=== PATIENT | female | born 1980 | race Caucasian/White ===

== ENCOUNTER 2016-10-18 10:00 | Emergency (ER) | payer OTHER ==
[2016-10-18 11:38] VITALS: BP 140/67
--- NOTE | 2016-10-18 12:15 | UC ---
Respiratory Complaint HPI - HPI Summary HPI Summary: 36 YO FEMALE WITH HX OF ASTHMA PRESENTS WITH HIGH FEVER/WORSENING COUGH / MYALGIAS X 1 DAY HAS HAD A COUGH AND WHEEZING X 1 1/2 MOS DIARRHEA X 2 WEEKS HAD RIGHT FINGER ORIF ONE WEEK AGO - History of Current Complaint Chief Complaint: UCRespiratory Stated Complaint: COUGH,FEVER Time Seen by Provider: 10/18/16 12:03 Hx Obtained From: Patient Hx Last Menstrual Period: 3 mos. Onset/Duration: Sudden Onset - OF F/C, Gradual Onset - OF COUGH/WHEEZE Timing: Constant Severity Initially: Mild Severity Currently: Severe Pain Intensity: 8 Pain Scale Used: 0-10 Numeric Character: Cough: Productive Aggravating Factors: Deep Breaths Alleviating Factors: Nothing - RAN OUR OF MDI Associated Signs And Symptoms: Positive: Fever, Chills, Wheezing - Allergies/Home Medications Allergies/Adverse Reactions: Allergies Allergy/AdvReac Type Severity Reaction Status Date / Time Carbamazepine [From Tegretol] Allergy Severe See Comment Verified 10/18/16 11:39 Cefaclor [From Ceclor] Allergy Severe See Comment Verified 10/18/16 11:39 Latex Allergy Severe Airway Verified 10/18/16 11:39 Obstruction Levetiracetam [From Keppra] Allergy Severe See Comment Verified 10/18/16 11:39 Venlafaxine [From Effexor] Allergy Severe Anxiety Verified 10/18/16 11:39 Phenytoin [From Dilantin] Allergy Intermediate See Comment Verified 10/18/16 11: 39 Acetaminophen [From Vicodin] Allergy Tachycardia Verified 10/18/16 11:39 Hydrocodone [From Vicodin] Allergy Tachycardia Verified 10/18/16 11:39 Terbutaline Allergy Swelling Verified 10/18/16 11:39 Of Face,Lips,& Throat Home Medications: Home Medications Ibuprofen TAB* [Motrin TAB* 600 MG] 600 mg PO Q24H PRN 10/18/16 [History Confirmed 10/18/16] Gummi Vitamin 2 tab PO DAILY 10/18/16 [History Confirmed 10/18/16] traMADol TAB* [Ultram*] 25 mg PO BEDTIME PRN 10/18/16 [History Confirmed ] PMH/Surg Hx/FS Hx/Imm Hx Previously Healthy: Yes Endocrine History Of: Denies: Diabetes Cardiovascular History Of: Reports: Cardiac Disorders - aorta valve dysfunction Respiratory History Of: Reports: Asthma - Surgical History Surgical History: Yes Surgery Procedure, Year, and Place: TONSILECTOMY, right 5th finger with 2 screws 09/2016 - Family History Known Family History: Positive: Hypertension, Respiratory Disease Negative: Diabetes - Social History Alcohol Use: None Substance Use Type: None Smoking Status (MU): Former Smoker Type: Cigarettes Amount Used/How Often: 1 CIG PER DAY Length of Time of Smoking/Using Tobacco: APPROX 26 YRS Have You Smoked in the Last Year: Yes When Did the Patient Quit Smoking/Using Tobacco: 08/2016 - Immunization History Most Recent Influenza Vaccination: not this season Review of Systems Constitutional: Fever, Chills Skin: Negative Eyes: Negative ENT: Negative Respiratory: Cough Cardiovascular: Negative Gastrointestinal: Diarrhea Genitourinary: Negative Motor: Negative Neurovascular: Negative Musculoskeletal: Myalgia Neurological: Negative Psychological: Negative All Other Systems Reviewed And Are Negative: Yes Physical Exam Triage Information Reviewed: Yes Appearance: Well-Appearing, No Pain Distress, Well-Nourished Vital Signs: Initial Vital Signs Temp 97.6 F 10/18/16 11:23 Pulse 68 10/18/16 11:23 Resp 20 10/18/16 11:23 BP 140/67 10/18/16 11:23 Pulse Ox 100 10/18/16 11:23 Vital Signs Reviewed: Yes Eyes: Positive: Conjunctiva Clear ENT: Positive: Hearing grossly normal, TMs normal. Negative: Nasal congestion, Nasal drainage, Tonsillar swelling, Tonsillar exudate, Trismus, Muffled/hoarse voice Neck: Positive: Supple, Nontender Respiratory: Positive: No respiratory distress, No accessory muscle use, Wheezing Cardiovascular: Positive: RRR Abdomen Description: Positive: Soft. Negative: CVA Tenderness (R), CVA Tenderness (L) Musculoskeletal: Positive: ROM Intact, No Edema Neurological: Positive: Alert, Muscle Tone Normal Psychological Exam: Normal Skin Exam: Normal UC Diagnostic Evaluation - Laboratory O2 Sat by Pulse Oximetry: 100 - NORMAL/NOT HYPOXIC Re-Evaluation - Re-Evaluation First Eval Re-Evaluation Time: 12:45 Change: Improved - STILL WHEEZING BUT NUCH IMPROVED Respiratory Course/Dx - Differential Dx/Diagnosis Provider Diagnoses: ACUTE BRONCHITIS WITH BRONCHOSPASM Discharge - Discharge Plan Condition: Stable Disposition: HOME Prescriptions: Amoxicillin/Clavulanate TAB* [Augmentin TAB 875*] 875 mg PO BID #14 tab Prednisone [Deltasone] 40 mg PO DAILY #10 tab Patient Education Materials: Acute Bronchitis (ED) Referrals: ASHLEE Green [Primary Care Provider] - 4 Days (IF NOT BETTER) Additional Instructions: USE INHALER DIRECTED RECHECK FOR NEW OR WORSENING SYMPTOMS
[2016-10-18] MEDS ORDERED: Albuterol 2.5 MG/3 ML NEB.SOL* (0.083%) INH ONE (12:16)
[2016-10-18] MEDS ORDERED: Ipratropium 0.5MG/2.5ML NEB* 0.5 MG/2.5 ML NEB.SOLN INH ONE (12:16)
--- NOTE | 2016-10-18 12:39 | RAD ---
Indication: Cough, wheezing. 2 views of the chest including dual energy PA views demonstrate no mediastinal shift. Heart is of normal size and configuration. Lung man demonstrate no pleural fluid, pneumonia or pneumothorax. IMPRESSION: No active cardiopulmonary disease is noted.
[2016-10-18] MEDS ORDERED: Albuterol HFA INHALER* 8 gm MDI INH ONE (12:51)
== END 2016-10-18 13:11 | disposition home or self-care (01) ==
LOC: UCCORT 10:00
DX: J20.9 Acute bronchitis, unspecified (principal); Z87.891 Personal history of nicotine dependence; Z88.1 Allergy status to other antibiotic agents; Z88.5 Allergy status to narcotic agent; Z88.8 Allergy status to other drugs, medicaments and biological substances
CPT/HCPCS: 71020; 87502; 99212; A9270-GY; G0463; J7644

== ENCOUNTER 2017-10-05 09:05 | Emergency (ER) | payer OTHER ==
[2017-10-05 10:00] VITALS: BP 131/73
--- NOTE | 2017-10-05 10:35 | UC ---
FLU HPI - HPI Summary HPI Summary: Pt c/o generalized malaise, nausea, X 1 month. C/O of productive cough, nasal congestion, low back pain, flank pain and difficulty urinating that began this morning. Pt reports positive history of kidney stones and urinary retention. Pt sees Dr Boss at [facility]. Pt has also concerned that she may be . Pt was able to void today. - History of Current Complaint Chief Complaint: UCGeneralIllness Stated Complaint: SORE THROAT SKIN COMPLAINT EARS Time Seen by Provider: 10/05/17 09:54 Hx Obtained From: Patient Hx Last Menstrual Period: 2016 ?: No Onset/Duration: Gradual Onset, Lasting Weeks - 4 Severity Currently: Mild Severity Initially: Mild Associated Signs & Symptoms: Positive: Cough, Sore Throat Related Hx: Possible Flu/Infectious Exposure - Risk Factors Influenza Risk Factors: Negative - Allergy/Home Medications Allergies/Adverse Reactions: Allergies Allergy/AdvReac Type Severity Reaction Status Date / Time Carbamazepine [From Tegretol] Allergy Severe See Comment Verified 10/05/17 10:00 Cefaclor [From Ceclor] Allergy Severe See Comment Verified 10/05/17 10:00 Latex Allergy Severe Airway Verified 10/05/17 10:00 Obstruction Levetiracetam [From Keppra] Allergy Severe See Comment Verified 10/05/17 10:00 Venlafaxine [From Effexor] Allergy Severe Anxiety Verified 10/05/17 10:00 Phenytoin [From Dilantin] Allergy Intermediate See Comment Verified 10/05/17 10: 00 Acetaminophen [From Vicodin] Allergy Tachycardia Verified 10/05/17 10:00 Hydrocodone [From Vicodin] Allergy Tachycardia Verified 10/05/17 10:00 Terbutaline Allergy Swelling Verified 10/05/17 10:00 Of Face,Lips,& Throat PMH/Surg Hx/FS Hx/Imm Hx Previously Healthy: Yes Neurological History: Seizures - Surgical History Surgical History: Yes Surgery Procedure, Year, and Place: TONSILECTOMY, right 5th finger with 2 screws 09/2016 - Family History Known Family History: Positive: Hypertension, Respiratory Disease Negative: Diabetes - Social History Occupation: Employed Full-time Lives: With Family Alcohol Use: None Substance Use Type: None Smoking Status (MU): Former Smoker Type: Cigarettes Amount Used/How Often: 1 CIG PER DAY Length of Time of Smoking/Using Tobacco: APPROX 26 YRS Have You Smoked in the Last Year: Yes When Did the Patient Quit Smoking/Using Tobacco: 08/2016 - Immunization History Most Recent Influenza Vaccination: not this season Review of Systems Constitutional: Chills, Fatigue Skin: Negative Eyes: Negative ENT: Sore Throat, Sinus Congestion, Sinus Pain/Tenderness Respiratory: Shortness Of Breath, Cough Cardiovascular: Negative Gastrointestinal: Nausea Genitourinary: Other - urinary retention Motor: Negative Neurovascular: Negative Musculoskeletal: Negative Neurological: Headache Psychological: Negative Is Patient Immunocompromised?: No All Other Systems Reviewed And Are Negative: Yes Physical Exam Triage Information Reviewed: Yes Appearance: Well-Appearing Vital Signs: Initial Vital Signs Temp 98.9 F 10/05/17 09:44 Pulse 93 10/05/17 09:44 Resp 20 10/05/17 09:44 BP 131/73 10/05/17 09:44 Pulse Ox 100 10/05/17 09:44 Vital Signs Reviewed: Yes Eye Exam: Normal ENT Exam: Other ENT: Positive: Nasal congestion, TM bulging - right, Sinus tenderness Dental Exam: Normal Neck exam: Normal Respiratory Exam: Normal Cardiovascular Exam: Normal Abdominal Exam: Other Abdomen Description: Positive: CVA Tenderness (R), CVA Tenderness (L) Musculoskeletal Exam: Normal Neurological Exam: Normal Psychological Exam: Normal Skin Exam: Normal Flu Course/Dx - Course Course Of Treatment: I discussed with the pt the results test and exam here today. I referred the pt to her PCP for further evaluation and testing and pt verbalized understanding and agreed to plan of care. - Differential Dx/Diagnosis Differential Diagnosis/HQI/PQRI: Influenza, Upper Respiratory Infection Provider Diagnoses: bronchitis. sinusitis Discharge - Discharge Plan Condition: Stable Disposition: HOME Prescriptions: Azithromycin TAB* [Zithromax TAB (Z-OJ) 250 mg #6 tabs] 2 tab PO .TODAY, THEN 1 DAILY #1 oj Patient Education Materials: Sinusitis (ED), Acute Bronchitis (ED) Referrals: ASHLEE Green [Primary Care Provider] - As Soon As Possible Additional Instructions: Please follow up with your PCP as soon as possible. 2 views of the chest including dual energy PA views demonstrate no mediastinal shift. Heart is of normal size and configuration. Lung man demonstrate no pleural fluid, pneumonia or pneumothorax. When compared to previous exam of October 18, 2016 no significant change is noted. IMPRESSION: No active cardiopulmonary disease is noted.
--- NOTE | 2017-10-05 11:08 | RAD ---
Indication: Cough, shortness of breath. 2 views of the chest including dual energy PA views demonstrate no mediastinal shift. Heart is of normal size and configuration. Lung man demonstrate no pleural fluid, pneumonia or pneumothorax. When compared to previous exam of October 18, 2016 no significant change is noted. IMPRESSION: No active cardiopulmonary disease is noted.
== END 2017-10-05 11:27 | disposition home or self-care (01) ==
LOC: UCCORT 09:05
DX: J40 Bronchitis, not specified as acute or chronic (principal); J32.9 Chronic sinusitis, unspecified; Z32.02 Encounter for pregnancy test, result negative; R56.9 Unspecified convulsions; Z90.89 Acquired absence of other organs; Z88.5 Allergy status to narcotic agent; Z88.8 Allergy status to other drugs, medicaments and biological substances; Z88.6 Allergy status to analgesic agent; Z88.1 Allergy status to other antibiotic agents; Z91.040 Latex allergy status; Z87.891 Personal history of nicotine dependence
CPT/HCPCS: 71046; 81003; 84702; 87502; 99212; G0463

== ENCOUNTER 2017-10-21 19:06 | Emergency (ER) | payer OTHER ==
[2017-10-21 19:56] VITALS: BP 127/53
--- NOTE | 2017-10-21 21:12 | UC ---
Respiratory Complaint HPI - HPI Summary HPI Summary: Per rubber off "1) Headache, bilateral ear pain, elevated temperature (tmax 100) , nasal congestion, sore throat, painful swallowing, "little cough ... but when I do, it's really hard" chest congestion, increased appetite, sweating, and "really tired" for six days. 2) Constipation for three days. Last BM today and normal. 3) Increased sensativity to scents, breast swelling/tenderness/warmth, and nausea with three episodes of vomiting today. Patient states she feels and knows she , is in the implantation phase, but has had two home tests. Patient wants a serum test. 4) Increased crying and moodiness for one to one and a half weeks." -she is here w/ her BF Dami. -denies SI/HI. -LMP was 09/26/17. she believes that she is b/c her dtr had her period recently and Felicity's period follows right after, but it did not this time. her period either comes on the or the . she has 2 kids. "you just know" when youre . -has asthma, has albuterol but hasnt used it b/c she didnt know if she could use it while . -she thinks that driving through the really cold [place] last weekend caused her to be sick. she states that she needs an abx b/c her bronchitis and ST won' t go away without it. - History of Current Complaint Chief Complaint: UCGeneralIllness Stated Complaint: ACHY,CONGESTION Time Seen by Provider: 10/21/17 20:35 Hx Last Menstrual Period: 09/26/17 Pain Intensity: 10 - Allergies/Home Medications Allergies/Adverse Reactions: Allergies Allergy/AdvReac Type Severity Reaction Status Date / Time Carbamazepine [From Tegretol] Allergy Severe See Comment Verified 10/21/17 19:50 Cefaclor [From Ceclor] Allergy Severe See Comment Verified 10/21/17 19:50 Latex Allergy Severe Airway Verified 10/21/17 19:50 Obstruction Levetiracetam [From Keppra] Allergy Severe See Comment Verified 10/21/17 19:50 Venlafaxine [From Effexor] Allergy Severe Anxiety Verified 10/21/17 19:50 Phenytoin [From Dilantin] Allergy Intermediate See Comment Verified 10/21/17 19: 50 Hydrocodone [From Vicodin] Allergy Tachycardia Verified 10/21/17 19:50 Terbutaline Allergy Swelling Verified 10/21/17 19:50 Of Face,Lips,& Throat Home Medications: Home Medications Acetaminophen TAB* [Tylenol TAB*] 325 mg PO Q4H PRN 10/21/17 [History Confirmed 10/21/17] Multivitamins & [place] [ Adult Gummy/Dha/ 0.4-25 mg] 1 chw PO DAILY 10/21/17 [History Confirmed 10/21/17] PMH/Surg Hx/FS Hx/Imm Hx Previously Healthy: Yes - Surgical History Surgical History: Yes Surgery Procedure, Year, and Place: TONSILECTOMY, right 5th finger with 2 screws 09/2016 - Family History Known Family History: Positive: Hypertension, Respiratory Disease Negative: Diabetes - Social History Alcohol Use: None Substance Use Type: None Smoking Status (MU): Former Smoker Type: Cigarettes Amount Used/How Often: 1 PPD Length of Time of Smoking/Using Tobacco: 30 Years Have You Smoked in the Last Year: Yes When Did the Patient Quit Smoking/Using Tobacco: ~10/07/17 - Immunization History Most Recent Influenza Vaccination: not this season Review of Systems Constitutional: Negative, Fatigue Skin: Negative Eyes: Negative ENT: Sore Throat, Nasal Discharge Respiratory: Cough Cardiovascular: Negative Gastrointestinal: Negative Genitourinary: Negative Motor: Negative Neurovascular: Negative Musculoskeletal: Negative Neurological: Negative Psychological: Negative Is Patient Immunocompromised?: No All Other Systems Reviewed And Are Negative: Yes Physical Exam Triage Information Reviewed: Yes Appearance: Well-Appearing, No Pain Distress, Well-Nourished Vital Signs: Initial Vital Signs Temp 97.3 F 10/21/17 19:42 Pulse 64 10/21/17 19:42 Resp 16 10/21/17 19:42 BP 127/53 10/21/17 19:42 Pulse Ox 100 10/21/17 19:42 Vital Signs Reviewed: Yes Eye Exam: Normal ENT Exam: Normal ENT: Positive: Pharynx normal, Pharyngeal erythema - mild, Nasal congestion, TMs normal. Negative: TM bulging, TM dull, TM red, Tonsillar swelling, Tonsillar exudate, Hoarse voice, Sinus tenderness Dental Exam: Normal Neck exam: Normal Neck: Positive: Supple, Nontender, No Lymphadenopathy Respiratory Exam: Normal - no cough at all during entire time I was in exam room. minimally diminished breath sounds b/l. Respiratory: Positive: Lungs clear, Normal breath sounds, No respiratory distress, No accessory muscle use. Negative: Crackles, Rhonchi, Stridor, Wheezing Cardiovascular Exam: Normal Cardiovascular: Positive: RRR, No Murmur, Pulses Normal Abdomen Description: Positive: Nontender, Soft. Negative: CVA Tenderness (R), CVA Tenderness (L), Distended, Guarding, Peritoneal Signs Bowel Sounds: Positive: Present Musculoskeletal Exam: Normal Neurological Exam: Normal Psychological Exam: Normal Skin Exam: Normal UC Diagnostic Evaluation - Laboratory O2 Sat by Pulse Oximetry: 100 Respiratory Course/Dx - Course Course Of Treatment: influneza neg. rapid strep neg. urine HCG neg. -no evidience of bacterial infection. lungs clear, no fever. -serum HCG per pt request - Differential Dx/Diagnosis Differential Diagnosis/HQI/PQRI: Bronchitis, Influenza, Laryngitis, Lower Resp Infection, Sinusitis Provider Diagnoses: Bronchitis Discharge - Discharge Plan Condition: Stable Disposition: HOME Patient Education Materials: Acute Bronchitis (ED) Referrals: ASHLEE Green [Primary Care Provider] - Additional Instructions: We discussed that there is no evidence of bacterial infection. strep is negative and your lungs are clear. flu sawb is negative. serum test is ordered, you can call in the next 1-2 days for results. - you should use the albuterol every 4-6 hrs as needed while you are sick with the cough. - You should follow up with your PCP to follow up on all of the symptoms discussed above.
== END 2017-10-21 21:30 | disposition home or self-care (01) ==
LOC: UCCORT 19:06
DX: J40 Bronchitis, not specified as acute or chronic (principal); R51 Headache; H92.03 Otalgia, bilateral; K59.00 Constipation, unspecified; Z32.02 Encounter for pregnancy test, result negative; Z88.8 Allergy status to other drugs, medicaments and biological substances; Z88.5 Allergy status to narcotic agent; Z88.1 Allergy status to other antibiotic agents; Z91.040 Latex allergy status; Z87.891 Personal history of nicotine dependence
CPT/HCPCS: 36415; 84702; 87502; 87651; 99212; G0463

== ENCOUNTER 2017-10-25 10:39 | Emergency (ER) | payer OTHER ==
[2017-10-25 12:51] VITALS: BP 108/52
--- NOTE | 2017-10-25 12:55 | UC ---
Respiratory Complaint HPI - HPI Summary HPI Summary: 37 y/o female presents to the urgent care c/o acute mid back pain s/p falling on the ice 2 days ago 1) Congestion and cough for one month. Here four days ago and diagnosed with bronchitis; negative influenze, strep, and urine tests. Patient is adimet that she be prescribed an antibiotic. Patient stated since last visit she has bilateral ear pain, burning in chest, and myalgias. 2) Mid back pain since slip and fall on ice two days. - History of Current Complaint Chief Complaint: UCGeneralIllness Stated Complaint: COUGH CONGESTION EYES SINUS Time Seen by Provider: 10/25/17 12:52 Hx Obtained From: Patient Hx Last Menstrual Period: 10/21/17 Pain Intensity: 10 - Allergies/Home Medications Allergies/Adverse Reactions: Allergies Allergy/AdvReac Type Severity Reaction Status Date / Time MS Carbamazepine Allergy Severe See Comment Verified 10/25/17 12:46 [From Tegretol] MS Cefaclor [From Ceclor] Allergy Severe See Comment Verified 10/25/17 12:46 MS Latex [Latex] Allergy Severe Airway Verified 10/25/17 12:46 Obstruction MS Levetiracetam Allergy Severe See Comment Verified 10/25/17 12:46 [From Keppra] MS Venlafaxine [From Effexor] Allergy Severe Anxiety Verified 10/25/17 12:46 MS Phenytoin [From Dilantin] Allergy Intermediate See Comment Verified 10/25/17 12:46 MS Hydrocodone [From Vicodin] Allergy Tachycardia Verified 10/25/17 12:46 MS Terbutaline [Terbutaline] Allergy Swelling Verified 10/25/17 12:46 Of Face,Lips,& Throat PMH/Surg Hx/FS Hx/Imm Hx - Surgical History Surgical History: Yes Surgery Procedure, Year, and Place: TONSILECTOMY, right 5th finger with 2 screws 09/2016 - Family History Known Family History: Positive: Hypertension, Respiratory Disease Negative: Diabetes - Social History Alcohol Use: Rare Substance Use Type: None Smoking Status (MU): Former Smoker Type: Cigarettes Amount Used/How Often: ~1 PPD Length of Time of Smoking/Using Tobacco: Since Age 7 Have You Smoked in the Last Year: Yes When Did the Patient Quit Smoking/Using Tobacco: ~10/07/17 - Immunization History Most Recent Influenza Vaccination: not this season Physical Exam Vital Signs: Initial Vital Signs Temp 98.2 F 10/25/17 12:44 Pulse 76 10/25/17 12:44 Resp 18 10/25/17 12:44 BP 108/52 10/25/17 12:44 Pulse Ox 100 10/25/17 12:44 UC Diagnostic Evaluation - Laboratory O2 Sat by Pulse Oximetry: 100 Discharge - Discharge Plan Referrals: ASHLEE MunozClaudette [Primary Care Provider] -
--- NOTE | 2017-10-25 13:30 | RAD ---
INDICATION: Back pain COMPARISON: None TECHNIQUE: AP and lateral views were obtained . FINDINGS: Bones: There are no acute bony findings. 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 Alignment: Normal Disc spaces: The disc spaces are well-maintained Soft tissues: There are no soft tissue abnormalities. IMPRESSION: NO ACUTE BONY FINDINGS
== END 2017-10-25 14:12 | disposition home or self-care (01) ==
LOC: UCCORT 10:39
DX: M54.9 Dorsalgia, unspecified (principal); Z87.891 Personal history of nicotine dependence; W01.0XXA Fall on same level from slipping, tripping and stumbling without subsequent striking against object, initial encounter; Y92.9 Unspecified place or not applicable
CPT/HCPCS: 72100; 99212; G0463

== ENCOUNTER 2018-11-04 11:04 | Emergency (ER) | payer OTHER ==
[2018-11-04 13:00] VITALS: BP 118/65
--- NOTE | 2018-11-04 13:07 | UC ---
General HPI - HPI Summary HPI Summary: pt is c/o watery eyes, R ear pain, nasal congestion, cough with congestion and yellow secretions. She denies fever and body aches to myself but told triage she is having chills and body aches. +V/D. No self tx [employer]. + hx asthma. - History of Current Complaint Chief Complaint: UCRespiratory Stated Complaint: ST/VOMITING/BODY ACHES Time Seen by Provider: 11/04/18 12:51 Hx Obtained From: Patient Hx Last Menstrual Period: 11/01/18 Pain Intensity: 6 Associated Signs & Symptoms: Negative: Chest Pain, Wheezing - Allergy/Home Medications Allergies/Adverse Reactions: Allergies Allergy/AdvReac Type Severity Reaction Status Date / Time carbamazepine [From Tegretol] Allergy "causes Verified 11/04/18 12:56 seizures" cefaclor [From Ceclor] Allergy See Comment Verified 11/04/18 12:56 latex Allergy Airway Verified 06/04/18 19:59 Obstruction levetiracetam [From Keppra] Allergy "causes Verified 11/04/18 12:56 seizures" phenytoin [From Dilantin] Allergy "causes Verified 11/04/18 12:56 seizures" terbutaline Allergy "causes Verified 11/04/18 12:56 seizures" venlafaxine [From Effexor] Allergy Anxiety Verified 11/04/18 12:56 hydrocodone [From Vicodin] AdvReac Tachycardia Verified 11/04/18 12:56 PMH/Surg Hx/FS Hx/Imm Hx Respiratory History: Asthma Neurological History: Seizures - Surgical History Surgical History: Yes Surgery Procedure, Year, and Place: TONSILECTOMY, right 5th finger with 2 screws 09/2016 - Family History Known Family History: Positive: Cardiac Disease, Hypertension, Diabetes, Respiratory Disease Family History: lung cancer - Social History Alcohol Use: Rare Substance Use Type: None Smoking Status (MU): Heavy Every Day Tobacco Smoker Type: Cigarettes Amount Used/How Often: amount varies each day Length of Time of Smoking/Using Tobacco: Since Age 7 Have You Smoked in the Last Year: Yes When Did the Patient Quit Smoking/Using Tobacco: ~10/07/17 - Immunization History Most Recent Influenza Vaccination: not this season Vaccination Up to Date: Yes Review of Systems All Other Systems Reviewed And Are Negative: Yes Constitutional: Positive: Fever, Chills Skin: Negative: Rash Eyes: Negative: Drainage, Eye Redness ENT: Positive: Sinus Congestion. Negative: Sinus Pain/Tenderness Respiratory: Positive: Cough. Negative: Shortness Of Breath Cardiovascular: Negative: Chest Pain Gastrointestinal: Positive: Vomiting, Diarrhea. Negative: Abdominal Pain Genitourinary: Negative: Dysuria Motor: Positive: Negative Neurovascular: Positive: Negative Musculoskeletal: Negative: Arthralgia Neurological: Negative: Headache Psychological: Positive: Negative Is Patient Immunocompromised?: No Physical Exam Triage Information Reviewed: Yes Appearance: Well-Appearing Vital Signs: Initial Vital Signs Temp 97.8 F 11/04/18 12:57 Pulse 58 11/04/18 12:57 Resp 18 11/04/18 12:57 BP 118/65 11/04/18 12:57 Pulse Ox 99 11/04/18 12:57 Vital Signs Reviewed: Yes Eyes: Positive: Conjunctiva Clear ENT: Positive: Pharynx normal, TMs normal. Negative: Nasal drainage, Sinus tenderness Neck: Positive: Supple, Nontender, No Lymphadenopathy Respiratory: Positive: Lungs clear, No respiratory distress, Decreased breath sounds - mild Cardiovascular: Positive: RRR, No Murmur Abdomen Description: Positive: Nontender, No Organomegaly, Soft Bowel Sounds: Positive: Present Musculoskeletal: Positive: ROM Intact Neurological: Positive: Alert Psychological: Positive: Age Appropriate Behavior Skin Exam: Normal Course/Dx - Course Course Of Treatment: no indication for antibiotics. this is c/w a viral syndrom. i spent several minutes at bedside explaing to pt why an antibiotic is not indicated. i advised i will tx her asthma with a steroid and inhaler. inhaler conflicted with allergy list so i went back tp speak with pt about an inhaler she has used and tolersted in the past. pt stated " don't bother to write me for anything if you aren't going to give me an antibiotic". i was not able to prescribe an inhaler without the additional informtion. - Differential Dx - Multi-Symptom Differential Diagnoses: Other - uri, sinsuitis, bronchitis, asthma, pneumonia, influenza, gastoenteritis - Diagnoses Provider Diagnosis: Viral syndrome, Asthma Discharge - Sign-Out/Discharge Documenting (check all that apply): Patient Departure All imaging exams completed and their final reports reviewed: No Studies - Discharge Plan Condition: Stable Disposition: HOME Prescriptions: predniSONE [Prednisone 20 MG TAB] 40 mg PO DAILY 5 Days #10 tablet Patient Education Materials: Asthma (ED), Viral Syndrome (ED) Referrals: Mary Cooper MD [Primary Care Provider] - 5 Days - Billing Disposition and Condition Condition: STABLE Disposition: Home - Attestation Statements Provider Attestation: I was available for consult. This patient was seen by the AMINA. The patient was not presented to, seen by, or examined by me. EK
== END 2018-11-04 13:37 | disposition home or self-care (01) ==
LOC: UCCORT 11:04
DX: B34.9 Viral infection, unspecified (principal); J45.909 Unspecified asthma, uncomplicated; R09.81 Nasal congestion; H92.01 Otalgia, right ear; F17.210 Nicotine dependence, cigarettes, uncomplicated; Z88.8 Allergy status to other drugs, medicaments and biological substances; Z88.5 Allergy status to narcotic agent; Z88.1 Allergy status to other antibiotic agents; Z91.040 Latex allergy status
CPT/HCPCS: 99212; G0463

== ENCOUNTER 2019-07-10 11:45 | Emergency (ER) | payer OTHER ==
[2019-07-10 12:25] VITALS: BP 101/53
--- NOTE | 2019-07-10 13:02 | UC ---
Throat Pain/Nasal Dada HPI - HPI Summary HPI Summary: sinus pain and pressure x 3 weeks nasal congestion , pnd , cough , sore throat, fever , chills, body aches - History of Current Complaint Chief Complaint: UCRespiratory Stated Complaint: COUGH,VOMITING Time Seen by Provider: 07/10/19 12:21 Hx Obtained From: Patient Hx Last Menstrual Period: 07/02/19 Onset/Duration: Gradual Onset, Lasting Weeks - 3, Still Present Severity: Moderate Pain Intensity: 10 Pain Scale Used: 0-10 Numeric Cough: Nonproductive Associated Signs & Symptoms: Positive: Sinus Discomfort, Nasal Discharge, Fever. Negative: Rash - Allergies/Home Medications Allergies/Adverse Reactions: Allergies Allergy/AdvReac Type Severity Reaction Status Date / Time carbamazepine [From Tegretol] Allergy "causes Verified 07/10/19 12:18 seizures" cefaclor [From Ceclor] Allergy See Comment Verified 07/10/19 12:18 latex Allergy Airway Verified 07/10/19 12:18 Obstruction levetiracetam [From Keppra] Allergy "causes Verified 07/10/19 12:18 seizures" phenytoin [From Dilantin] Allergy "causes Verified 07/10/19 12:18 seizures" terbutaline Allergy "causes Verified 07/10/19 12:18 seizures" venlafaxine [From Effexor] Allergy Anxiety Verified 07/10/19 12:18 hydrocodone [From Vicodin] AdvReac Tachycardia Verified 07/10/19 12:18 PMH/Surg Hx/FS Hx/Imm Hx Cardiovascular History: Cardiac Disease Neurological History: Seizures - Surgical History Surgical History: Yes Surgery Procedure, Year, and Place: TONSILECTOMY, right 5th finger with 2 screws 09/2016 - Family History Known Family History: Positive: Cardiac Disease, Hypertension, Diabetes, Respiratory Disease Family History: lung cancer - Social History Alcohol Use: Rare Substance Use Type: None Smoking Status (MU): Heavy Every Day Tobacco Smoker Type: Cigarettes Amount Used/How Often: amount varies each day Length of Time of Smoking/Using Tobacco: Since Age 7 Have You Smoked in the Last Year: Yes When Did the Patient Quit Smoking/Using Tobacco: ~10/07/17 - Immunization History Most Recent Influenza Vaccination: not this season Vaccination Up to Date: Yes Review of Systems All Other Systems Reviewed And Are Negative: Yes Constitutional: Positive: Fever, Chills, Fatigue Skin: Positive: Negative Eyes: Positive: Negative ENT: Positive: Sore Throat, Ear Ache, Nasal Discharge, Sinus Congestion, Sinus Pain/Tenderness Respiratory: Positive: Cough Cardiovascular: Positive: Negative Is Patient Immunocompromised?: No Physical Exam Triage Information Reviewed: Yes Appearance: Well-Appearing, No Pain Distress, Well-Nourished Vital Signs: Initial Vital Signs Temp 98 F 07/10/19 12:18 Pulse 75 07/10/19 12:18 Resp 16 07/10/19 12:18 BP 101/53 07/10/19 12:18 Pulse Ox 98 07/10/19 12:18 Vital Signs Reviewed: Yes Eye Exam: Normal Eyes: Positive: Conjunctiva Clear ENT: Positive: Normal ENT inspection, Hearing grossly normal, Pharynx normal, Nasal congestion, Nasal drainage, TMs normal, Dental tenderness Neck: Positive: Supple, Nontender, No Lymphadenopathy Respiratory: Positive: Chest non-tender, Lungs clear, Normal breath sounds Cardiovascular: Positive: RRR, No Murmur, Pulses Normal Abdominal Exam: Normal Skin Exam: Normal Throat Pain/Nasal Course/Dx - Differential Dx/Diagnosis Provider Diagnosis: Sinusitis Discharge ED - Sign-Out/Discharge Documenting (check all that apply): Patient Departure All imaging exams completed and their final reports reviewed: No Studies - Discharge Plan Condition: Stable Disposition: HOME Prescriptions: Amoxicillin/Clavulanate TAB* [Augmentin TAB 875*] 875 mg PO BID #20 tab Fluconazole 150 MG TAB* [Diflucan 150 MG TAB*] 150 mg PO UC ONCE #2 tablet Patient Education Materials: Sinusitis (ED) Referrals: Mary Cooper MD [Primary Care Provider] - If Needed - Billing Disposition and Condition Condition: STABLE Disposition: Home
== END 2019-07-10 12:40 | disposition home or self-care (01) ==
LOC: UCCORT 11:45
DX: J32.9 Chronic sinusitis, unspecified (principal); J02.9 Acute pharyngitis, unspecified; F17.210 Nicotine dependence, cigarettes, uncomplicated; R53.83 Other fatigue; Z88.5 Allergy status to narcotic agent; Z88.8 Allergy status to other drugs, medicaments and biological substances; Z88.1 Allergy status to other antibiotic agents; Z91.040 Latex allergy status
CPT/HCPCS: 99212; G0463